=== PATIENT | female | born 1950 | race Caucasian/White ===

== ENCOUNTER 2019-10-30 20:24 | Inpatient (IN) | payer OTHER ==
[~2019-10-30] VITALS: Ht 243.8 cm; Wt 77.1 kg
[~2019-10-30 20:24] MED LIST: ALLEGRA ALLERG180 MG PO; FENOFIBRATE160 MG PO; FENOFIBRATE48 MG PO; IBUPROFEN 800800 M1 PO; NORVASC5 MG PO; PERCOCET 10-321 EACH PO; PREDNISONE 5 MG5 M1 PO; PRILOSEC 20 MG20 MG PO; SYNTHROID125 MC1 PO; ULTRAM50 MG PO; XARELTO10 MG PO
[2019-10-30 20:40] VITALS: BP 161/85
[2019-10-30 21:12] LABS: ABSOLUTE NEUTROPHILS 6.2 thou/uL (1.4-8.2); BASOPHILS 1.2 % (0.0-2.0); EOSINOPHILS 1.4 % (0.0-3.0); HEMATOCRIT 36.3 % (37.0-47.0); HEMOGLOBIN 12.1 gm/dL (12.0-15.0); LYMPHOCYTES 11.5 % (24.0-44.0); MCH 28.9 pg (26.0-34.0); MCHC 33.3 g/dL (28.0-37.0); MONOCYTES 7.9 % (1.0-8.0); PLATELET COUNT 428 thou/uL (150-400); RBC 4.17 mil/uL (4.20-5.00); RDW 14.2 % (10.5-14.5); WBC 7.9 thou/uL (4.0-11.0)
[2019-10-30 21:16] LABS: ANION GAP 8 mmol/L (7-16); BUN 23 mg/dL (7-18); CALCIUM 9.1 mg/dL (8.5-10.1); CHLORIDE 96 mmol/L (98-107); CO2 26 mmol/L (21-32); CREATININE 0.8 mg/dL (0.6-1.0); GLUCOSE 96 mg/dL (74-106); POTASSIUM 3.7 mmol/L (3.5-5.1); SODIUM 130 mmol/L (136-145)
[2019-10-30 21:23] LABS: ALBUMIN 4.3 g/dL (3.4-5.0); SGOT 37 U/L (15-37); SGPT 51 U/L (30-65); TOTAL BILIRUBIN 0.5 mg/dL (0.2-1.0); TOTAL PROTEIN 8.3 g/dL (6.4-8.2)
[2019-10-30 21:38] LABS: APTT 27.9 Seconds (24.5-32.8); PROTIME 10.4 Seconds (9.3-11.4)
[2019-10-30 22:21] LABS: TROPONIN-I <0.06 ng/mL (<0.06)
[2019-10-30 22:27] VITALS: BP 161/85
[2019-10-31 00:30] VITALS: BP 184/71
[2019-10-31] MEDS ORDERED: TRAMADOL 50 MG50 MG PO (00:31)
[2019-10-31] MEDS ORDERED: ULTRAM50 MG PO (00:42)
[2019-10-31 01:30] VITALS: BP 167/65
[2019-10-31 02:23] VITALS: BP 151/66
--- NOTE | 2019-10-31 03:32 | NUR ---
PT ADMITTED TO FROM OR AT AROUND 0030 HRS. ALERT AND ORIENTED. SLEEPING. WAKES UP C/O NAUSEA, HAD EMESIS X 2. ZOFRAN GIVEN . BP ELEVATED BUT UPON RECHECKING OVER ABOUT 2 HRS, IT WAS COMING DOWN, SHE REMAINS AFEBRILE. IVF INFUSING. SHE IS >93% ON ROOM AIR. SCDS IN PLACE. ABDOMEN WITH HYPOACTIVE BOWEL SOUNDS, LAP SITES LOOK OKAY.SHE HAS STRESS INCONTINENCE- SO FAR X 2.SCDS IN PLACE. RESTING QUIETLY AT THIS TIME. CALL LIGHT WITHIN REACH.
[2019-10-31 05:48] VITALS: BP 143/71
[2019-10-31 07:10] VITALS: BP 134/65
[2019-10-31 13:33] VITALS: BP 134/65
--- NOTE | 2019-11-02 08:08 | EKG ---
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 : 1950 Requested By: Jose Barraza Order Number: [id number] MD: Jose Nichols Measurements Intervals [place] Rate: 67 P: 29 MT: 234 QRS: -36 QRSD: 131 T: 90 QT: 434 QTc: 458 Interpretive Statements Sinus rhythm Prolonged MT interval LVH with QRS widening and repolarization abnormality No previous ECG available for comparison Electronically Signed On 11-02-2019 8:08:46 CDT by Jose Nichols [email or web address] <ELECTRONICALLY SIGNED> By: Jose Nichols MD, FAC 11/02/19807 58 58 Jose Nichols MD, [facility] /EPI
--- NOTE | 2019-11-05 16:06 | PATH ---
[facility] [address] [address] PATHOLOGY RPT PROCEDURE Name: DOMINIQUE LAFLEUR Room #: 448-P [facility] IN M.R.#: [id number] Admission: 10/30/19 Date of : 46 Discharge: 10/31/19 Report #: [id number] Path Case #: [id number] [facility] Accession Number: [id number] . 01 Material submitted: . gallbladder - GALLBLADDER . 01 Clinical history: . Subacute cholecystitis . 02 Diagnosis: Gallbladder, cholecystectomy: - Mild chronic cholecystitis. 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 (IUV:leo; 11/05/2019) QMS 11/05/2019 1434 Local . 02 Electronically signed: . Betsy Negrete MD, Pathologist NPI- [id number] . 01 Gross description: . The specimen is received in formalin labeled "Ramin, Dominique, gallbladder" and consists of a previously opened green gallbladder measuring 7.4 x 3.6 x 1.4 cm. The margin is inked black. No calculi are identified within the gallbladder lumen or container. The mucosa is green with extensive yellow stippling and an average wall thickness of 0.1 cm. No masses are identified. Fire Investigation Lieutenant sections are submitted in A1. (SDY; 11/04/2019) SYU/SYU 11/04/2019 1517 Local . 02 Pathologist provided ICD-10: K81.1, K82.4 . 02 CPT . 824787 Specimen Comment: A courtesy copy of this report has been sent to [phone] Specimen Comment: [phone] Specimen Comment: Report sent to / DR DIAZ Performed at: 01 [place] [id number] [address] [id number] MD Jae Raza MD Phone: [phone] Performed at: [address] [id number] [address] [address] PATHOLOGY RPT PROCEDURE Name: DOMINIQUE LAFLEUR Room #: 448-P [facility] IN M.R.#: [id number] Admission: 10/30/19 Date of : 46 Discharge: 10/31/19 Report #: [id number] Path Case #: [id number] MD Betsy Negrete MD Phone: [phone]
--- NOTE | 2019-11-09 14:44 | O ---
[facility] [address] [address] [place] [address] OPERATIVE REPORT Name: ZARA LAFLEUR Room #: 448-P [facility] IN M.R.#: [id number] Admission: 10/30/19 Attend Phys: Robert Jones MD Discharge: 10/31/19 Date of : 46 Report #: [id number] THIS REPORT FOR: cc: KATE DIAZ Physician not on staff Robert Jones MD ~ CC: KATE Jones Physician staff DATE OF SERVICE: 10/30/2019 PREOPERATIVE DIAGNOSIS: Subacute cholecystitis with cholelithiasis. POSTOPERATIVE DIAGNOSIS: Subacute cholecystitis with cholelithiasis. PROCEDURE PERFORMED: Laparoscopic cholecystectomy with cholangiogram. SURGEON: Robert Jones MD ANESTHESIA: General anesthesia. COMPLICATIONS: None. ESTIMATED BLOOD LOSS: 5 mL. DESCRIPTION OF PROCEDURE: With the patient under general anesthesia, she did have a hysterectomy. I decided to go ahead and make a supraumbilical incision. This was made in a curvilinear fashion. Timeout was performed. Skin was anesthetized with 0.25% Marcaine. Fascia identified. Fascia was grasped with hemostat. Fascia was then opened under visualization, 0 Vicryl suture placed on the fascial edges for retraction. With the abdominal wall lifted anteriorly, Veress needle was then placed through the peritoneum. Abdominal cavity was insufflated with CO2. After creating pneumoperitoneum, pressure of 15, 11 mm trocar was placed through the peritoneum under visualization. No harm to underlying tissue. The gallbladder was actually distended. The preoperative ultrasound done several days ago showed a contracted gallbladder. Two 5 mm trocars were placed in the right upper quadrant and a 5-mm trocar was placed in right epigastrium. The fundus of the gallbladder was lifted cephalad. The bottom of the proximal part of the gallbladder was identified. Peritoneum was dissected free using cautery and blunt dissection, started laterally and then medially. The cystic duct was able to be isolated without difficulty. There is some fibrosis in the gallbladder cystic duct junction and also some twisting here. The cystic duct was found without difficulty. A clip was placed in junction of cystic duct to the gallbladder. The triangle of Calot was also able to be opened up. A opening was made in the cystic duct. Cholangiogram catheter [facility] [address] [place] [address] OPERATIVE REPORT Name: ZARA LAFLEUR Room #: 448-P [facility] IN M.R.#: [id number] Admission: 10/30/19 Attend Phys: Robert Jones MD Discharge: 10/31/19 Date of : 46 Report #: [id number] was placed. This was held with a clip. Fluoroscopic cholangiogram was obtained. Initially, ____ probably sludge in the common duct and it tend to coalesce. If it was a stone, it was less than a couple of millimeters. I think it is more sludgy material. The rest of the bile duct looked normal. The cholangiogram catheter was then removed. The proximal cystic duct was then clipped x 2 and then divided. Cystic artery was isolated, clipped x 2 proximally and 1 distally and then divided. There was a small posterior branch that was freed and clipped up high up on the liver bed. Gallbladder was free from the posterior attachment without difficulty. Gallbladder was placed in a specimen bag. Gallbladder then came down and tacked. The gallbladder was opened off the field. At the end of the case, there were multiple stones in the gallbladder. These were 3-4 mm stones. The liver bed was checked, hemostasis was excellent. Irrigation was performed. Irrigation was aspirated. Cautery was used to divide the gallbladder from the liver bed, also for hemostasis. The CO2 was evacuated. Trocars were removed. Infraumbilical fascia defect was closed with [id number] 0 Vicryl x 2. Skin was irrigated. Skin was then closed with 5-0 PDS. Steri-Strip, Band-Aids applied. The patient tolerated the procedure well. <ELECTRONICALLY SIGNED> By: Robert Jones MD 11/09/19 1444 1427 1452 Robert Jones MD /nt
== END 2019-10-31 18:03 | disposition home or self-care (01) | DRG 419 ==
LOC: ER 20:24 → EROBS 21:56 → 4S 10-31 01:13
PROVIDERS: Emergency Medicine; ADMIT Surgery; ATTEND Surgery
PROC: 0FT44ZZ Resection of Gallbladder, Percutaneous Endoscopic Approach (ICD-10-PCS; principal; 2019-10-31)
PROC: BF101ZZ Fluoroscopy of Bile Ducts using Low Osmolar Contrast (ICD-10-PCS; principal; 2019-10-31)
DX: K80.00 Calculus of gallbladder with acute cholecystitis without obstruction (principal); I10 Essential (primary) hypertension; K21.9 Gastro-esophageal reflux disease without esophagitis; E78.00 Pure hypercholesterolemia, unspecified; E03.9 Hypothyroidism, unspecified; E78.5 Hyperlipidemia, unspecified; Z90.710 Acquired absence of both cervix and uterus; Z79.01 Long term (current) use of anticoagulants; Z79.899 Other long term (current) drug therapy; Z88.1 Allergy status to other antibiotic agents; Z91.040 Latex allergy status; Z88.5 Allergy status to narcotic agent; Z88.2 Allergy status to sulfonamides; Z88.8 Allergy status to other drugs, medicaments and biological substances; Z91.048 Other nonmedicinal substance allergy status; Z91.09 Other allergy status, other than to drugs and biological substances; Z03.818 Encounter for observation for suspected exposure to other biological agents ruled out
CPT/HCPCS: 50101; 50249; 50411; 50445; 50555; 50558; 51489; 52265; 53307; 53310; 55245; 55317; 56462; 56525; 56526; 62110; 62900